=== PATIENT | male | born 1955 | race Caucasian/White ===

== ENCOUNTER 2017-05-10 06:31 | Emergency (ER) | payer MEDICAID ==
[~2017-05-10] VITALS: Ht 167.6 cm; Wt 81.6 kg
[~2017-05-10 06:31] MED LIST: APAP/HYDROCODON1 T13 PO; COL100 PO; ECO81 PO; FLA500 PO; FLO4 PO; LEVAQUIN750 MG PO; METOPROLOL TART25 M1 PO; REGL PO; ZOC20 PO
[2017-05-10 06:38] VITALS: Ht 167.6 cm; Wt 81.6 kg
[2017-05-10 09:49] VITALS: BP 172/99
== END 2017-05-10 09:49 | disposition home or self-care (01) ==
LOC: ED 06:31
DX: H81.399 Other peripheral vertigo, unspecified ear (principal); R42 Dizziness and giddiness; R11.0 Nausea; I10 Essential (primary) hypertension
CPT/HCPCS: J8597; Q0162

== ENCOUNTER 2018-10-23 14:52 | Emergency (ER) | payer MEDICAID ==
[~2018-10-23] VITALS: Ht 160 cm; Wt 75.7 kg
[2018-10-23 14:57] VITALS: Ht 160 cm; Wt 75.7 kg
[2018-10-23 17:34] VITALS: BP 99/48
== END 2018-10-23 17:34 | disposition home or self-care (01) ==
LOC: ED 14:52
DX: R42 Dizziness and giddiness (principal); I25.2 Old myocardial infarction; I10 Essential (primary) hypertension
CPT/HCPCS: 82962; J8597; Q0162

== ENCOUNTER 2018-10-25 19:13 | Emergency (ER) | payer SELFPAY ==
[~2018-10-25] VITALS: Ht 167.6 cm; Wt 75.3 kg
[2018-10-25 19:15] VITALS: Ht 167.6 cm; Wt 75.3 kg
[2018-10-25 19:50] LABS: BASOPHIL % 0.3 % (0-2); PLATELET COUNT 210 x10^3mcL (130-400); RED CELL DISTRIBUTION WIDTH 13.7 % (11.5-14.5)
[2018-10-25 19:54] LABS: CALCIUM 8.4 mg/dL (8.5-10.1); CARBON DIOXIDE 23.4 mmol/L (21-32); CREATININE SERUM 1.9 mg/dL (0.7-1.3); POTASSIUM SERUM 4.1 mmol/L (3.5-5.1)
[2018-10-25 19:57] LABS: BILIRUBIN TOTAL 0.5 mg/dL (0.20-1.00); TOTAL PROTEIN, SERUM 7.6 g/dL (6.4-8.2)
[2018-10-26 00:57] VITALS: BP 107/60
== END 2018-10-26 00:57 | disposition home or self-care (01) ==
LOC: ED 19:13
DX: R10.30 Lower abdominal pain, unspecified (principal); R25.1 Tremor, unspecified; I10 Essential (primary) hypertension; Z98.890 Other specified postprocedural states
CPT/HCPCS: 36415